=== PATIENT | female | born 1955 | race Caucasian/White ===

== ENCOUNTER → 2016-09-05 07:46 | Outpatient (CLI) | payer BC ==
[2013-12-11 13:42] VITALS: BMI 37.2
[~2016-09-05 07:46] MED LIST: ATIVAN2 MG PO; GLUCOPHAGE500 MG PO; HYDROCHLOROTH12.5 M1; HYOSCYAMINE0.125 M1 SL; LANTUS INSULIN10 ML; LOPRESSOR25 MG; PRILOSEC20 MG PO; PRISTIQ100 MG PO; TOPROL XL50 MG PO; VITAMIN B-1250 MCG PO
== END | disposition home or self-care (01) ==
LOC: D.CT 07:46
DX: R06.02 Shortness of breath (principal); J18.9 Pneumonia, unspecified organism

== ENCOUNTER → 2016-10-06 17:08 | Outpatient (CLI) | payer BC ==
[2013-12-11 13:42] VITALS: BMI 37.2
== END | disposition home or self-care (01) ==
LOC: D.MAMMO 08:00
DX: Z12.31 Encounter for screening mammogram for malignant neoplasm of breast (principal)

== ENCOUNTER → 2017-03-09 09:59 | Outpatient (CLI) | payer BC ==
[2013-12-11 13:42] VITALS: BMI 37.2
== END | disposition home or self-care (01) ==
LOC: D.CT 09:59 → D.RT 11:00
DX: R06.02 Shortness of breath (principal); R10.9 Unspecified abdominal pain

== ENCOUNTER → 2017-07-18 13:30 | Outpatient (CLI) | payer BC ==
[2013-12-11 13:42] VITALS: BMI 37.2
[2017-07-21 05:08] LABS: IMMUNOGLOBULIN E 3 IU/mL (0-100)
[2017-07-22 14:07] LABS: IMMUNOGLOBULIN A 411 mg/dL (87-352); IMMUNOGLOBULIN G 1263 mg/dL (700-1600); IMMUNOGLOBULIN M 103 mg/dL (26-217)
== END | disposition home or self-care (01) ==
LOC: D.RT 13:30
PROVIDERS: Internal Medicine Pulmonary Disease
DX: J45.909 Unspecified asthma, uncomplicated (principal)

== ENCOUNTER 2017-11-01 09:56 | Day surgery (SDC) | payer BC ==
[~2017-11-01] VITALS: Ht 160 cm; Wt 90.9 kg
--- NOTE | ~2017-11-01 | OP ---
PATIENT NAME: LESVIA LICONA MEDICAL RECORD: [id number] :57 [facility] DATE: SURGEON: LUIS BRAMBILA MD DATE OF OPERATION: 11/01/2017 PROCEDURE: EGD with biopsy. REFERRING PHYSICIAN: Barrie Chung MD INDICATIONS: Ms. Licona is delightful 62-year-old woman with a history of diabetes mellitus, frequent pneumonias and bronchitis, and nonalcoholic steatohepatitis. She has had symptoms of heartburn, epigastric pain, nausea, vomiting. She has had a cholecystectomy in the past. She presents for outpatient EGD. PREMEDICATIONS: Total IV anesthesia (ASA 3 frequent pneumonias, bronchitis, diabetes mellitus, stable angina) propofol 150 mg. INSTRUMENT: Olympus video gastroscope. PROCEDURE AND FINDINGS: After receiving informed consent, Ms. Licona'oly posterior pharynx was anesthetized with Cetacaine spray, was placed in left lateral decubitus position, sedated as per anesthesia. After achieving adequate level of sedation, gastroscope was introduced per orally and advanced to the duodenum without difficulty. The esophageal mucosa was without erythema, ulcers, strictures, or masses. The Z-line was irregular and biopsies were taken from the distal esophagus. Small sliding type hiatal hernia was noted. Gastric mucosa was notable for mild prepyloric and antral erythema and antral biopsies were obtained to rule out Helicobacter pylori. No lesions were seen in the cardia, fundus, or body of the stomach. Pylorus was patent and competent. Duodenal mucosa was without erythema or ulcers and appeared normal through the second portion. Biopsies were taken from the second portion of duodenum to rule out celiac disease. Gastroscope was then withdrawn. Ms. Licona tolerated the procedure well, no immediate complications. ASSESSMENT: 1. Irregular Z-line suggestive of gastroesophageal reflux disease. 2. Small sliding type hiatal hernia. 3. Mild gastritis. 4. Intermittent nausea and vomiting, heartburn symptoms as well as epigastric pain. RECOMMENDATIONS: 1. Follow up histopathology. 2. Increase Prilosec from 20 to 40 mg p.o. daily. 3. Recommend gastric emptying scan. TRANSINT:[id number] Voice Confirmation ID: [id number] DOCUMENT ID: [id number] OPERATIVE REPORT [id number] LESVIA LICONA LUIS BRAMBILA MD at 1420 CC: BARRIE CHUNG [id number] DICTATION DATE: 11/01/17 1302 DIRECTOR OF LABORATORY OPERATIONS: 11/01/17 1329 REG [facility] [address] [id number]
[2017-11-01] MEDS ORDERED: LISINOPRIL2.5 MG PO (10:22)
[2017-11-01 10:26] LABS: HEMATOCRIT 39.7 % (36.0-48.0); HEMOGLOBIN 13.3 g/dL (12-16); MCH 30.8 pg (26.0-34.0); MCHC 33.5 g/dL (31.0-37.0); MCV 91.9 fL (80.0-100.0); MEAN PLATELET VOLUME 10.8 fL (7.4-10.4); RBC 4.32 10x6/uL (4.00-5.40); RDW 13.5 % (11.5-14.5); WBC 10.6 10x3/uL (4.8-10.8)
[2017-11-01 10:29] VITALS: BP 110/70; Ht 160 cm; Wt 90.9 kg
== END 2017-11-01 14:30 | disposition home or self-care (01) ==
LOC: D.OPS 09:56
PROVIDERS: Internal Medicine Gastroenterology
DX: R10.13 Epigastric pain (principal); K29.70 Gastritis, unspecified, without bleeding; K44.9 Diaphragmatic hernia without obstruction or gangrene; R11.2 Nausea with vomiting, unspecified; Z01.812 Encounter for preprocedural laboratory examination

== ENCOUNTER → 2018-10-18 07:43 | Outpatient (CLI) | payer BC ==
[2017-11-01 10:29] VITALS: BMI 35.5
[~2018-10-18 07:43] MED LIST changes: +LISINOPRIL2.5 MG PO
== END | disposition home or self-care (01) ==
LOC: D.US 07:30
DX: R94.5 Abnormal results of liver function studies (principal)

== ENCOUNTER → 2019-01-29 08:29 | Outpatient (CLI) | payer BC ==
[2017-11-01 10:29] VITALS: BMI 35.5
--- NOTE | ~2019-01-29 | EC ---
PATIENT:LESVIA CHAVEZ DATE OF SERVICE: 01/29/19 SEX: F MEDICAL RECORD: [id number] DATE OF : 57 LOCATION:[facility] AGE OF PATIENT: 63 ADMISSION DATE: 01/29/19 REFERRING PHYSICIAN: INTERPRETING PHYSICIAN: ISIDRO NORTH MD ECHOCARDIOGRAM REPORT ECHO CHARGES 4 ECHO COMPLETE Date: 01/29/19 CLINICAL DIAGNOSIS: DYSPNEA ECHOCARDIOGRAPHIC MEASUREMENTS (adult normal given) AC root (d.<3.7cm) 3.2 cm LV Septum d (<1.2 cm> 1.4 cm Valve Excursion 1.4 cm LV Septum (systole) 1.6 cm Left Atria (s.<4.0cm> 3.9 cm LVPW d(<1.2cm) 1.5 cm RV (d.<2.3cm) 3.8 cm LVPW (sytole) 1.7 cm LV diastole(<5.6CM) 3.7 cm MV E-F(>70mm/sec) cm LV systole 2.7 cm LVOT Diameter 1.5 cm MV exc.(>10mm) cm Est.ejection fraction (50-75%) % DOPPLER: LVIT cm/sec A 65.0 cm/sec E 75.0 cm/sec LA cm/sec RVSP 36 mmHg LVOT 86 cm/sec AOP1/2T m/s Asc. Ao 139 cm/sec RVOT cm/sec RA cm/sec PA cm/sec AV Gradient Peak 7.69 mmHg AV Mean 4.51 mmHg AV Area 1.5 cm MV Gradient Peak 2.75 mmHg MV Mean 1.38 mmHg MV Area cm COMMENTS: [employer] Process Technician: Eusebio HOOKER Desktop Architect: Xander North TAPE# PACS Pericardial Effusion N DATE OF SERVICE: 01/29/2019 FINDINGS: 1. Left ventricular chamber size is within normal limits. Left ventricular systolic function is normal. Overall ejection fraction is estimated at 55% to 60%. 2. Left atrium, right atrium, and right ventricular chamber sizes are within normal limit. 3. Valvular structures have normal structure and motion. 4. Doppler interrogation reveals trace mitral regurgitation and mild tricuspid ECHOCARDIOGRAM REPORT [id number] LESVIA CHAVEZ regurgitation. No other valvular insufficiency or stenosis. Pulmonary systolic pressure is estimated at 36 mmHg. 5. No evidence of pericardial effusion or left ventricular thrombus. TRANSINT:[id number] Voice Confirmation ID: [id number] DOCUMENT ID: [id number] ISIDRO NORTH MD CC: [id number] DICTATION DATE: 01/29/19 172 KITMAN: 01/29/192224 REG [facility] [address] [id number]
--- NOTE | ~2019-01-29 | ST ---
PATIENT:LESVIA CHAVEZ MEDICAL RECORD: [id number] SEX: F LOCATION:[facility] ORDER #: ADMISSION DATE: 01/29/19 AGE OF PATIENT: 63 REFERRING PHYSICIAN: INTERPRETING PHYSICIAN: ISIDRO CARSON MD DATE OF SERVICE: 01/29/2019 PROCEDURE: Nuclear stress test. INDICATION: Angina, shortness of breath, hypertension. TECHNIQUE: She was exercised on standard Lexiscan protocol with 32 mCi of sestamibi injected at peak stress, 11 mCi were used previously for rest images. FINDINGS: Gated SPECT reveals preserved ejection fraction at 66% with good wall motion and thickening and brightening throughout all segments. SPECT imaging Cardiolite was used as myocardial fusion agent. There is homogeneous uptake throughout all segments at rest and stress with no evidence of inducible ischemia or previous infarction. OVERALL IMPRESSION: 1. This is a normal nuclear stress test with no evidence of inducible ischemia or previous infarction. 2. Gated SPECT reveals a preserved ejection fraction at 66%. In this patient with ongoing symptomatology, the current scan does not suggest the presence of hemodynamically significant coronary artery disease. Evaluate noncardiac etiology of chest pain. TRANSINT:[id number] Voice Confirmation ID: [id number] DOCUMENT ID: [id number] ISIDRO CARSON MD CC: RINKU MONTANO [id number] DICTATION DATE: 01/29/19 1737 SENIOR COUNSEL COMMERCIAL: 01/30/19 0846 [facility] CLI 01/29/19 [id number] [place] [address]
== END | disposition home or self-care (01) ==
LOC: D.HCCARDIO 08:29
PROVIDERS: ATTEND Internal Medicine Interventional Cardiology
DX: I20.9 Angina pectoris, unspecified (principal)

== ENCOUNTER 2019-05-13 14:57 | Outpatient (CLI) | payer BC ==
[2017-11-01 10:29] VITALS: BMI 35.5
== END 2019-05-13 23:59 | disposition home or self-care (01) ==
LOC: D.MAMMO 14:57
PROVIDERS: ATTEND Family Medicine
DX: Z12.31 Encounter for screening mammogram for malignant neoplasm of breast (principal)

== ENCOUNTER → 2020-03-05 11:10 | Outpatient (CLI) | payer BC ==
[2017-11-01 10:29] VITALS: BMI 35.5
== END | disposition home or self-care (01) ==
LOC: D.US 11:10
PROVIDERS: ATTEND Clinical Nurse Specialist Family Health
DX: N83.201 Unspecified ovarian cyst, right side (principal)

== ENCOUNTER → 2020-03-16 14:13 | Outpatient (CLI) | payer BC ==
[2017-11-01 10:29] VITALS: BMI 35.5
[~2020-03-16 14:13] MED LIST changes: +ALBUTEROL SULF8.5 GM INH; +ASPIRIN EC81 M1 PO; +BREO ELLIPTA 21 EACH; +CELEXA20 MG PO; +COZAAR25 MG PO; +COZAAR50 MG; +FUROSEMIDE20 MG PO; +HYDROCODON-ACE1 EAC7 PO; +LANTUS INS100 UNITS/ SC; -LANTUS INSULIN10 ML; +LASIX20 MG; +LORADINE PO; +MAGNESIUM OXID500 MG PO; +MELATONIN 3 MG1 TAB PO; +MUCINEX600 MG PO; +PROVENTIL/2.5 MG/3 M INH; +SINGULAIR10 MG PO; +TESSALON PERLE100 MG PO; +TRULICITY0.75 MG/0. SC
== END | disposition home or self-care (01) ==
LOC: D.CT 03-15 14:30
PROVIDERS: ATTEND Clinical Nurse Specialist Family Health
DX: R10.2 Pelvic and perineal pain (principal)

== ENCOUNTER 2020-03-16 20:42 | Inpatient (IN) | payer BC ==
[~2020-03-16] VITALS: Ht 160 cm; Wt 95.5 kg
[~2020-03-16 20:42] MED LIST changes: -ALBUTEROL SULF8.5 GM INH; -ASPIRIN EC81 M1 PO; -BREO ELLIPTA 21 EACH; -CELEXA20 MG PO; -COZAAR25 MG PO; -COZAAR50 MG; -FUROSEMIDE20 MG PO; -HYDROCODON-ACE1 EAC7 PO; -LASIX20 MG; -LORADINE PO; -MAGNESIUM OXID500 MG PO; -MELATONIN 3 MG1 TAB PO; -MUCINEX600 MG PO; -PROVENTIL/2.5 MG/3 M INH; -SINGULAIR10 MG PO; -TESSALON PERLE100 MG PO; -TRULICITY0.75 MG/0. SC
[2020-03-16] MEDS ORDERED: LORADINE PO (20:53)
[2020-03-16] MEDS ORDERED: CELEXA20 MG PO (20:53)
[2020-03-16] MEDS ORDERED: SINGULAIR10 MG PO (20:53)
[2020-03-16] MEDS ORDERED: TESSALON PERLE100 MG PO (20:54)
[2020-03-16] MEDS ORDERED: MUCINEX600 MG PO (20:54)
[2020-03-16] MEDS ORDERED: PROVENTIL/2.5 MG/3 M INH (20:54)
[2020-03-16] MEDS ORDERED: TRULICITY0.75 MG/0. SC (20:55)
[2020-03-16] MEDS ORDERED: COZAAR50 MG (20:55)
[2020-03-16] MEDS ORDERED: ASPIRIN EC81 M1 PO (20:55)
[2020-03-16] MEDS ORDERED: LASIX20 MG (20:55)
[2020-03-16] MEDS ORDERED: MELATONIN 3 MG1 TAB PO (20:56)
[2020-03-16] MEDS ORDERED: MAGNESIUM OXID500 MG PO (20:56)
--- NOTE | 2020-03-16 21:06 | NUR ---
URINE CUP TO PATIENT.
[2020-03-16 21:31] LABS: BASOPHILS 0.3 % (0-2); EOSINOPHILS 2.6 % (0-7); HEMATOCRIT 40.2 % (36.0-48.0); HEMOGLOBIN 13.3 g/dL (12-16); IMMATURE GRANULOCYTES 0.4 % (0-5); LYMPHOCYTES 45.2 % (15-50); MCH 30.2 pg (26.0-34.0); MCHC 33.1 g/dL (31.0-37.0); MCV 91.4 fL (80.0-100.0); MEAN PLATELET VOLUME 10.4 fL (7.4-10.4); MONOCYTES 6.3 % (2-11); NEUTROPHILS 45.2 % (40-80); PLATELET COUNT 249 10x3/uL (130-400); RDW 13.8 % (11.5-14.5); WBC 10.4 10x3/uL (4.8-10.8)
[2020-03-16 21:36] LABS: BILIRUBIN NEGATIVE (NEGATIVE); GLUCOSE NEGATIVE (NEGATIVE); KETONE NEGATIVE (NEGATIVE); NITRITE NEGATIVE (NEGATIVE); SPECIFIC GRAVITY 1.015 (1.005-1.020); UROBILINOGEN NORMAL (NORMAL)
[2020-03-16 21:37] LABS: EPITHELIAL CELLS 0-5 /hpf (0-5); WHITE CELLS - URINE 0-5 /hpf (NEGATIVE)
[2020-03-16 21:38] LABS: BACTERIA MODERATE /hpf (NEGATIVE)
[2020-03-16 21:41] LABS: CALCIUM 8.9 mg/dL (8.5-10.1); CARBON DIOXIDE 28.4 mmol/L (21.0-32.0); CHLORIDE - SERUM 102 mmol/L (98-107); POTASSIUM - SERUM 3.7 mmol/L (3.5-5.1); SODIUM 138 mmol/L (136-145); UREA NITROGEN 14 mg/dL (7-18); eGFR NON AFRICAN AMERICAN 59 mL/min (90-120)
[2020-03-16 21:52] LABS: ALBUMIN 3.4 g/dL (3.4-5.0); ALKALINE PHOSPHATASE 97 U/L (30-120); ALT (SGPT) 68 U/L (10-68); AMYLASE - SERUM 44 U/L (25-115); LIPASE 195 U/L (73-393); PROTEIN - SERUM 7.7 g/dL (6.4-8.2)
[2020-03-16 21:54] LABS: CALC OSMOLALITY 282 mosm/kg (275-300); GLUCOSE 209 mg/dL (74-106); TROPONIN-I < 0.017 ng/mL (0.000-0.060)
--- NOTE | 2020-03-16 22:40 | NUR ---
PT ARRIVED TO FLOOR AOX4. IV RIGHT FA INFUSING NS @ 125. PT STATES SHE WAS HAVING SLIGHT RUQ PAIN WITH TENDERNESS BUT DID NOT NEED ANYTHING FOR PAIN AT THIS TIME. HAS NOT HAD ANY NAUSEA. PT TOOK HIBI CLEASE SHOWER FOR POSSIBLE SX AND CHANGED INTO GOWN AND NON SLIP SOCKS. REFUSES SCDS. PT VERBALIZED UNDERSTANDING ABOUT BEING NPO AFTER MN IN CASE SHE HAS SX. DENIES OTHER NEEDS AT THIS TIME. CL IN REACH, WILL CTM
[2020-03-16 23:51] VITALS: BP 163/99; BMI 37.2
[2020-03-17] VITALS (17 sets, daily range): BP systolic 103–163; BP diastolic 61–99; Ht 160 cm; Wt 95.5 kg
[2020-03-17] MEDS ORDERED: COZAAR25 MG PO ×2 (03:12→05:43)
[2020-03-17] MEDS ORDERED: ALBUTEROL SULF8.5 GM INH (03:14)
[2020-03-17] MEDS ORDERED: BREO ELLIPTA 21 EACH (03:15)
[2020-03-17] MEDS ORDERED: FUROSEMIDE20 MG PO (03:15)
[2020-03-17 04:51] LABS: BASOPHILS 0.2 % (0-2); EOSINOPHILS 2.7 % (0-7); HEMATOCRIT 37.7 % (36.0-48.0); HEMOGLOBIN 12.1 g/dL (12-16); IMMATURE GRANULOCYTES 0.3 % (0-5); LYMPHOCYTES 48.3 % (15-50); MCH 29.7 pg (26.0-34.0); MCHC 32.1 g/dL (31.0-37.0); MCV 92.4 fL (80.0-100.0); MEAN PLATELET VOLUME 10.9 fL (7.4-10.4); MONOCYTES 7.6 % (2-11); NEUTROPHILS 40.9 % (40-80); PLATELET COUNT 236 10x3/uL (130-400); RBC 4.08 10x6/uL (4.00-5.40); RDW 14.1 % (11.5-14.5); WBC 9.8 10x3/uL (4.8-10.8)
[2020-03-17 05:07] LABS: ALBUMIN 2.9 g/dL (3.4-5.0); ANION GAP 11.7 mmol/L (8-16); BILIRUBIN - TOTAL 0.15 mg/dL (0.2-1.3); CALCIUM 8.3 mg/dL (8.5-10.1); CARBON DIOXIDE 27.9 mmol/L (21.0-32.0); CREATININE - SERUM 0.9 mg/dL (0.6-1.3); POTASSIUM - SERUM 3.6 mmol/L (3.5-5.1); PROTEIN - SERUM 6.6 g/dL (6.4-8.2)
--- NOTE | 2020-03-17 20:00 | NUR ---
PT SITTING UP IN BED WITHOUT DISTRESS, STATES HER ABD IS VERY SORE. ASSISTED PT UP TO BATHROOM TO VOID AND BACK TO BED. IV RIGHT FA INFUSING NS @ 125. PT ATTEMPTING TO EAT FULL LIQUID DINNER. NO NAUSEA. FREQUENT COUGH AND WHEEZES. PT STATES IT IS BECAUSE SHE HAS NOT HAD ALLERGY MEDS OR BREATHING TRX TO TODAY. CALLED RESP TO ADMINISTER BREATHING TRX. SCDS ON BILAT. ENCOURAGED PT TO AMBULATE IN HALLWAY TO HELP ALLEVIATE GAS PAIN. PROVIDED ICE CHIPS AND WATER. DENIES OTHER NEEDS. CL IN REACH, WILL CTM
--- NOTE | 2020-03-17 21:20 | NUR ---
PT STATES PAIN 04/05. GAVE NORCO ORDERED. PT STILL WITH WHEEZES. CALLED JULY ROBERTSON AND RECIEVED ORDER FOR HOME ALBUTEROL BREATHING TRX
[2020-03-18] VITALS: BP 125/63
--- NOTE | 2020-03-18 03:45 | NUR ---
PT ASSISTED TO BATHROOM AND BACK TO BED. GAVE NORCO FOR PAIN 04/05. AGAIN ENCOURAGED TO TRY AND AMBULATE IN HALLWAY FOR GAS PAIN. DOES NOT WANT TO AT THIS TIME. ENCOUAGED TO TRY AND AMBULATE ONCE PAIN PILL BRINGS PAIN DOWN. VERBALIZED UNDERSTANDING. WILL CTM
[2020-03-18 04:00] VITALS: BP 137/68
[2020-03-18 05:04] LABS: BASOPHILS 0.1 % (0-2); EOSINOPHILS 0.2 % (0-7); HEMATOCRIT 34.2 % (36.0-48.0); HEMOGLOBIN 10.8 g/dL (12-16); IMMATURE GRANULOCYTES 0.4 % (0-5); LYMPHOCYTES 27.1 % (15-50); MCH 29.3 pg (26.0-34.0); MCHC 31.6 g/dL (31.0-37.0); MCV 92.7 fL (80.0-100.0); MEAN PLATELET VOLUME 10.4 fL (7.4-10.4); MONOCYTES 6.4 % (2-11); NEUTROPHILS 65.8 % (40-80); PLATELET COUNT 229 10x3/uL (130-400); RBC 3.69 10x6/uL (4.00-5.40); RDW 14.4 % (11.5-14.5); WBC 11.2 10x3/uL (4.8-10.8)
[2020-03-18 05:55] LABS: ALBUMIN 2.7 g/dL (3.4-5.0); ANION GAP 12.7 mmol/L (8-16); BILIRUBIN - TOTAL 0.33 mg/dL (0.2-1.3); CALCIUM 7.7 mg/dL (8.5-10.1); CARBON DIOXIDE 24.1 mmol/L (21.0-32.0); CREATININE - SERUM 0.9 mg/dL (0.6-1.3); MAGNESIUM - SERUM 1.6 mg/dL (1.8-2.4); POTASSIUM - SERUM 3.8 mmol/L (3.5-5.1); PROTEIN - SERUM 6.3 g/dL (6.4-8.2)
[2020-03-18 08:40] VITALS: BP 132/65
[2020-03-18] MEDS ORDERED: HYDROCODON-ACE1 EAC7 PO (08:57)
--- NOTE | 2020-03-18 12:17 | NUR ---
DISCHARGED PATIENT HOME VIA WHEELCHAIR WITH FAMILY. DISCONTINUED IV, CATHETER TIP INTACT. WENT OVER DISCHARGE INSTRUCTIONS WITH PATIENT, VERBALIZED UNDERSTANDING. DENIES ANYTHING FURTHER.
== END 2020-03-18 12:19 | disposition home or self-care (01) | DRG 343 ==
LOC: D.ER 20:42 → D.MS 21:23
PROVIDERS: Family Medicine; Surgery; ADMIT Emergency Medicine; ATTEND Emergency Medicine
PROC: 0DTJ4ZZ Resection of Appendix, Percutaneous Endoscopic Approach (ICD-10-PCS; principal; 2020-03-17 11:45)
DX: K35.30 Acute appendicitis with localized peritonitis, without perforation or gangrene (principal); R74.0 Nonspecific elevation of levels of transaminase and lactic acid dehydrogenase [LDH]; E11.65 Type 2 diabetes mellitus with hyperglycemia; I10 Essential (primary) hypertension; F32.9 Major depressive disorder, single episode, unspecified; J45.909 Unspecified asthma, uncomplicated